=== PATIENT | male | born 1995 | race Two or more races ===

== ENCOUNTER 2024-04-25 21:12 | Emergency (ER) | payer OTHER ==
[~2024-04-25] VITALS: Ht 167.6 cm; Wt 79.8 kg
[2024-04-25 22:25] LABS: BASOPHILS % 0.5 % (0.0-1.0); EOSINOPHILS # (AUTO) 0.1 (0.0-0.4); EOSINOPHILS % 1.3 % (0.0-6.0); HEMATOCRIT 44.9 % (38.2-49.6); HEMOGLOBIN 15.6 g/dL (14.0-18.0); LYMPHOCYTES # (AUTO) 2.5 (1.0-3.2); LYMPHOCYTES % 31.7 % (18.0-39.1); MEAN CORPUSCULAR HEMOGLOBIN 29.8 pg (28-32); MEAN CORPUSCULAR HGB CONC 34.7 g/dL (31-35); MEAN CORPUSCULAR VOLUME 85.9 fL (81-99); MONOCYTES # (AUTO) 0.6 (0.2-0.8); NEUTROPHILS # (AUTO) 4.7 (2.1-6.9); NEUTROPHILS % 58.1 % (38.7-80.0); PLATELET COUNT 307 x10e3/uL (140-360); RED BLOOD COUNT 5.23 x10e6/uL (4.3-5.7); RED CELL DISTRIBUTION WIDTH 11.8 % (11.7-14.4); WHITE BLOOD COUNT 7.99 x10e3/uL (4.8-10.8)
[2024-04-25 22:38] LABS: ALBUMIN 4.9 g/dL (3.5-5.0); ALBUMIN/GLOBULIN RATIO 1.4 (0.8-2.0); ANION GAP 14.1 mmol/L (8-16); BILIRUBIN,TOTAL 1.1 mg/dL (0.2-1.2); CALCIUM 9.8 mg/dL (8.4-10.2); CREATININE, SERUM 1.1 mg/dL (0.72-1.25); TOTAL PROTEIN 8.5 g/dL (6.5-8.1)
[2024-04-25 22:41] LABS: POTASSIUM 3.1 mmol/L (3.5-5.1)
[2024-04-25 22:42] LABS: ACETAMINOPHEN < 3.0 ug/mL (10-30); ETHANOL < 10.0 mg/dL (0.0-10.0); SALICYLATE < 5.0 mg/dL (0-30)
[2024-04-26 00:07] LABS: CLARITY,URINE CLEAR (CLEAR); COLOR,URINE YELLOW (YELLOW); LEUKOCYTE ESTERASE ,URINE NEGATIVE (NEGATIVE); PH,URINE 6 (5 - 7)
[2024-04-26 00:08] LABS: AMPHETAMINES SCREEN,URINE NEGATIVE (NEGATIVE); BENZODIAZEPINES SCREEN,URINE NEGATIVE (NEGATIVE); BILIRUBIN,URINE NEGATIVE (NEGATIVE); CANNABINOIDS SCREEN,URINE NEGATIVE (NEGATIVE); GLUCOSE, URINE NEGATIVE (NEGATIVE); KETONES,URINE NEGATIVE (NEGATIVE); METHADONE SCREEN, URINE NEGATIVE (NEGATIVE); NITRITE,URINE NEGATIVE (NEGATIVE); OPIATES SCREEN,URINE NEGATIVE (NEGATIVE); PHENCYCLIDINE SCREEN,URINE NEGATIVE (NEGATIVE); PROTEIN,URINE DIPSTICK NEGATIVE (NEGATIVE); URINE UROBILINOGEN 1 mg/dL (0.2 - 1)
[2024-04-26 00:13] LABS: THYROID STIMULATING HORMONE 1.817 uIU/mL (0.350-4.940)
[2024-04-26 00:28] LABS: BACTERIA,URINE FEW /HPF; RBC,URINE 0-5 /HPF (0-5); WBC,URINE (MAN) 0-5 /HPF (0-5)
[2024-04-26 00:29] LABS: EPITHELIAL CELLS,URINE FEW /LPF
[2024-04-26 10:21] VITALS: PULSE 75; RESP 19; TEMP 98.2; O2SAT 98
== END 2024-04-26 12:31 | disposition home or self-care (01) ==
LOC: ER 21:26
DX: R45.851 Suicidal ideations (principal)
CPT/HCPCS: 36415; 80053; 80307; 80320; 80329; 81001; 81025; 84443; 85025; 99284